=== PATIENT | female | born 1955 | race Caucasian/White ===

== ENCOUNTER 2025-06-25 12:49 | Emergency (ER) | payer MEDICARE, BC ==
[~2025-06-25] VITALS: Ht 157.5 cm; Wt 59.1 kg
[2025-06-25 13:05] VITALS: TEMP 98.4
--- NOTE | 2025-06-25 13:05 | Physician Documentation ---
History of Present Illness ~ Stated Complaint: CUT ON R WRIST Time Seen by MD: 14:06 Primary Medical Doctor: [facility] Presents to ER due to a laceration of the right wrist reportedly caused by another person's fingernail one day prior. Unknown last tetanus vaccine. Lola ent reports no fever, chills, or other systemic symptoms. Patient reports no other acute symptoms or concerns. Tetanus Within 5 Years: Yes Medication Reconciliation Allergies: Coded Allergies: No Known Allergies (Unverified , 03/25/15) Past Medical History Past Medical History: High Cholesterol Past Surgical History: no surgical history Alcohol Use: Occasionally Lives with: Spouse Lives In: Home Review of Systems ROS As stated above in the HPI, otherwise all systems are reviewed and negative. Physical Exam Physical Exam VITALS: Reviewed and as above. GENERAL: Alert, nontoxic appearing, no apparent distress. RESPIRATORY: No increased work of breathing, no respiratory distress, speaking in full clear sentences SKIN: 2 cm x 2 cm shallow skin tear to the right dorsal wrist, no surrounding redness or swelling appears to be partially healing with scab in place Progress Results/Orders Results/Orders Vital Signs 06/25/25 06/25/25 06/25/25 13:05 13:39 15:16 Temp 98.4 Pulse 72 65 78 Resp 18 18 B/P (MAP) 142/74 137/78 (97) Pulse Ox 100 100 100 O2 Flow Rate 0 Medical Decision Making Findings This 70-year-old female presented with a superficial skin tear to the right dorsal wrist, there was no evidence of infection on physical exam, patient's Tdap was updated, the wound was cleaned and dressed by nursing. The wound appeared uncomplicated and is suitable for outpatient follow up. Home care instructions and follow up instructions given to patient. Differential Dx:Considerations: Include: Abrasion, Avulsion, Contusion, Laceration, Hematoma, Retained foreign body Departure Time of Disposition: 14:40 Disposition: 01 HOME / SELF CARE / HOMELESS Impression: Primary Impression: Wound Condition: Improved Discharge Instructions: How to Change Your Wound Dressing Additional Instructions: Keep the area clean dry and covered, wash the area gently daily and change the dressing daily or whenever it becomes soiled. Please follow up with your primary care provider in the next few days. Please return to the emergency department for any new or worsening concerning symptoms. Referrals: NO PRIMARY CARE PROVIDER (PCP) Education Educated: Patient Educated regarding: diagnosis, treatment, prognosis, need for follow up Signature Scribe Signature: No Scribe Attestation: The note accurately reflects work and decisions made by me.Anusha Cuenca NP 06/25/25 13:06 The note accurately reflects work and decisions made by me.ZACHERY Carreno 06/25/25 14:42 ANUSHA RECIO NP Jun 25, 2025 13:05 PIERRE LABOY Jun 25, 2025 14:40
[2025-06-25 13:39] VITALS: BP 137/78; RESP 18
[2025-06-25] MEDS: bacitracin 15gm ointment TP ONE (14:17)
[2025-06-25] MEDS: TETanus/Pertussis (Acell)/Diphther VAC/PF (Tdap-Adult) 0.5ml syringe IMVAC ONE (14:17)
[2025-06-25] MEDS: LIDOcaine/epinephrine/tetracaine TOPICAL sol 3 ML syringe TOP ONE (14:18)
[2025-06-25 15:16] VITALS: PULSE 78; O2SAT 100
== END 2025-06-25 15:17 | disposition home or self-care (01) ==
LOC: ER 12:51
DX: S61.511A Laceration without foreign body of right wrist, initial encounter (principal); E78.00 Pure hypercholesterolemia, unspecified; X58.XXXA Exposure to other specified factors, initial encounter; Y93.89 Activity, other specified; Y92.89 Other specified places as the place of occurrence of the external cause; Y99.8 Other external cause status
CPT/HCPCS: 90715; 99283; A6402; G0008; J3490; J7030; 90471; A6449